=== PATIENT | female | born 1995 | race Caucasian/White ===

== ENCOUNTER 2017-05-29 12:04 | Emergency (ER) | payer MEDICAID, OTHER ==
[~2017-05-29] VITALS: Ht 160 cm; Wt 71.0 kg
[~2017-05-29 12:04] MED LIST: BACT800T5 PO; LORTA5 PO
[2017-05-29 12:06] VITALS: BP 123/74; PULSE 120; RESP 20; TEMP 99.2; O2SAT 99
--- NOTE | 2017-05-29 12:26 | PD ---
HPI Chief Complaint: ENT Complaint Time Seen by Provider: 12:18 Travel History International Travel<30 days: No Contact w/Intl Traveler<30days: No Traveled to known affect area: No History of Present Illness HPI 22-year-old female here for evaluation of sore throat. Symptoms are this point. Hurts to swallow. Presents with fevers. She took a dose of ibuprofen at 8 AM this morning. Denies rash, recent travel, cough or congestion. No other complaints. PFSH Past Medical History Depression: Yes Cardiovascular Problems: No Diminished Hearing: No Headaches: Yes Immunizations Current: Yes Migraines: Yes ?: Not LMP: 28 days ago : 3 Para: 2 Miscarriage: 1 Past Surgical History Oral Surgery: Yes (WISDOM TEETH REMOVED) Social History Alcohol Use: Yes ("in moderation") Tobacco Use: No Substance Use: No Allergies-Medications (Allergen,Severity, Reaction): Coded Allergies: almond (Unverified Allergy, Unknown, 05/09/17) bee venom protein (honey bee) (Unverified Allergy, Unknown, 05/09/17) Reported Meds & Prescriptions Reported Meds & Active Scripts Active [place] 5/325 (Hydrocodone/Acetaminophen 5/325) 5 mg/325 mg Tab 1 Tab PO Q6H PRN Bactrim DS (Sulfamethoxazole-Trimethoprim DS) 1 Tab Tab 1 Tab PO Q12HR 5 Days Review of Systems Except as stated in HPI: all other systems reviewed are Neg Physical Exam Narrative GENERAL: Well-developed well-nourished female in no acute distress SKIN: Warm and dry. HEAD: Atraumatic. Normocephalic. EYES: Pupils equal and round. No scleral icterus. No injection or drainage. ENT: No nasal bleeding or discharge. Mucous membranes pink and moist. There is oropharyngeal erythema without exudate. Uvula midline. NECK: Trachea midline. No JVD. Tender anterior cervical lymphadenopathy is present. CARDIOVASCULAR: Regular rate and rhythm. No murmur appreciated. RESPIRATORY: No accessory muscle use. Clear to auscultation. Breath sounds equal bilaterally. Data Data Last Documented VS Vital Signs Date Time Temp Pulse Resp B/P (MAP) Pulse Ox O2 Delivery O2 Flow Rate FiO2 05/29/17 12:06 99.2 120 20 123/74 (90) 99 Room Air Orders Orders Acetaminophen (Tylenol) (05/29/17 12:30) Group A Rapid Strep Screen (05/29/17 12:24) Strep Culture (Group A) (05/29/17 12:30) Dexamethasone Inj (Decadron Inj) (05/29/17 13:45) MDM Medical Decision Making Medical Screen Exam Complete: Yes Emergency Medical Condition: Yes Medical Record Reviewed: Yes Differential Diagnosis Pharyngitis, tonsillitis, peritonsillar abscess, infectious mononucleosis, herpangina, epiglottitis, retropharyngeal abscess Narrative Course 22-year-old female here with a sore throat. She appears well and initial examination. She does have anterior cervical lymphadenopathy as well as oral for new erythema without exudate. She was initially tachycardic in triage. She 'll be given a dose of Tylenol. Rapid strep screen was ordered. Upon reexamination she feels improved. The rapid strep screen was negative. The patient will be given a dose of Decadron here and she will be discharged with Magic mouthwash for symptom control. Reflex strep culture is pending. Diagnosis Primary Impression: Pharyngitis Qualified Codes: J02.9 - Acute pharyngitis, unspecified Departure Forms: Tests/Procedures, Work Release Enter return to work date: Jun 01, 2017 Additional Instructions: Stay well hydrated and well-nourished. Alternate Tylenol and Motrin as needed for pain and fever per dosing instructions on the bottle. Return for any acutely new or worsening symptoms. Med/Other Pt SpecificInfo: Prescription(s) given Scripts Vppdvyhk-Aewgejmpyfuceab-Ecpvdtosd Liq (Magic Mouthwash Adult Liq) 120 Ml Susp 10 ML SWISH-SPIT ACHS for Mouth sores, #120 ML 1 Refill Each 5mL contains: Nystatin 200,000units, Diphenhydramine 4.25mg, Viscous Lidocaine 10mg, Barraza syrup 0.8 mL Prov: Cornelia Torres DO 05/29/17 Disposition: 01 DISCHARGE HOME Condition: Stable Jan Dillon May 29, 2017 12:25
[2017-05-29] MEDS ORDERED: ACETAMINOPHEN 325 MG TAB PO ONE (12:30)
[2017-05-29] MEDS ORDERED: MAGICADU2 SWISH-SPIT (13:45)
[2017-05-29] MEDS ORDERED: DEXAMETHASONE SOD PHOS 4 MG/ML VIAL IM ONE (13:45)
== END 2017-05-29 14:09 | disposition home or self-care (01) ==
LOC: NEPK 12:04
DX: J02.9 Acute pharyngitis, unspecified (principal)
CPT/HCPCS: 87081; 87880; 96372; 99284; J1100